=== PATIENT | female | born 1945 | race Caucasian/White ===

== ENCOUNTER 2017-05-07 17:03 | Emergency (ER) | payer BC ==
[~2017-05-07] VITALS: Ht 170.2 cm; Wt 72.6 kg
[2017-05-07] MEDS ORDERED: Mobic7.5 MG PO (17:56)
--- NOTE | 2017-05-07 17:58 | Emergency Room Report ---
History of Present Illness Time Seen by [id number] Presenting Problem in Triage Pt arrived:Wheelchair Presenting Problem:RIGHT HIP PAIN. PT STATES SHE HAD TWO PREVIOUS EPISODES OF SEEMINGLY BENIGN MUSCLE CRAMPS OVER THE LAST WEEK, WITH THE END RESULT BEING PT BEING ABLE TO AMBULATE WITHOUT ISSUE AFTERWARDS. TODAY, PATIENT STEPPED DOWN ON HER RT LEG AND IMMEDIATELY COLLAPSED FROM DISCOMFORT. NOTICEABLE BULGE AT PROXIMAL END OF FEMUR. NO BRUISING. 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 N Clinical Suspician of Infection? N Mental Status: 1 - Regular (Normal Baseline) Sepsis Risk:Low Sepsis Risk Have you (or family members/close friends) recently traveled outside the [place]? N If Yes, where/when: Have you had exposure to infectious disease within the past month? TB? Other? Specify: 71 years old white female who is here because of initial injury of the RIGHT thigh muscle during playing golf when she had the ground WITH THE RESULT OF IMMEDIATE PAIN, SHE HAS BEEN USING HEAT WITH NO IMPROVEMENT. SHE DENIES NUMBNESS , TINGLING , WEAKNESS, IT HURTS TOSTAND UP. Source patient, RN notes reviewed, family Exam Limitations no limitations ALLERGIES Uncoded Allergies: PCN (Mild, 05/07/17) History Medical History General Angina: No NM: No Hypertension? Yes Hyperlipidemia? Yes COPD? No Asthma? No CVA? No Seizures? No Diabetes? No GB Disease: No MRSA? No TB? No Cancer? No Immunization Hx Ped.Immunizations UTD Yes DT/Tetanus NOT SURE Surgical Hx Previous Surgery?Y RT ROTATOR CUFF HYSTERECTOMY Social History Smoking Hx Smoker: Never Smoker Tobacco: No Type N/A Are you/the child exposed to second-hand smoke: No Alcohol Alcohol: Yes Review of Systems All Other Systems Reviewed and Negative Constitutional no symptoms reported Eyes no symptoms reported ENT no symptoms reported. Respiratory no symptoms reported Cardiovascular no symptoms reported Gastrointestinal no symptoms reported Genitourinary no symptoms reported. Musculoskeletal see HPI, muscle pain Skin no symptoms reported Psychiatric/Neurological no symptoms reported Physical Exam Vital Signs Vital Signs Date Time Temp Pulse Resp B/P Pulse O2 O2 Flow FiO2 Ox Delivery Rate 05/07 1725 97.3 94 18 142/75 98 - WBC >12,000 or <4,000 or 10% bands? 2 or more SIRS Criteria Met? B/P:142/75 MAP:97 Creatinine >2.0? UA output<0.5ml/kg/hr for 2 hrs? Platelet count >100,000? Lactate >2.0mmol/1? INR >1.2 or PTT > than 60 sec? Evidence of Organ Dysfunction? Provider documented clinical suspician of infection? N Sepsis Criteria Count: 1 Sepsis Risk: Low Sepsis Risk General Appearance normal appearance, WD/WN Eye Exam - bilateral eye normal exam, bilateral eye PERRL, bilateral eye EOMI Ear, Nose, Throat hearing grossly normal, normal ENT inspection Neck normal inspection, non-tender, supple, full range of motion Respiratory Status Yes: trachea midline, chest symmetrical, non tender chest. No: respiratory distress. Lung Sounds bilateral: normal breath sounds, lungs clear. 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 No Results/Orders Orders Procedure Date/time Status HIP RT 2-3V W/PELVIS IF PERFOR 05/07 1724 Active XRAY/CT/US XRAY/CT/US XRAY hip XR interpretation by reviewed by me Xray Results no fracture seen Departure Departure Time of Disposition 1756 Disposition DC Home or Self Care(routine) Clinical Impression Primary Impression: Muscle strain Secondary Impressions: Muscle strain of right lower extremity Condition STABLE Referrals SYDNI PARSONS (PCP/Family) Additional Instructions REST ICE MOBIC SEE PCP PLANNED AND OBTAIN MRI IF NOT BETTER Discharge Counseling Counseled pt/family regarding diagnosis, test results, medications/RX, home care, follow up needs Prescriptions Current Visit Scripts Meloxicam (Mobic) 7.5 MG PO Q12HP #30 TAB ED Critical Care Critical Care No If Critical Care minutes are documented, the time involved in the performance of seperately reportable procedures was not counted toward critical care time documented. I directly delivered medical care to this critically ill and/or injured patient. Timely evaluation and treatment was necessary to address the significant organ system(s) dysfunction present in this patient. at [id number]
--- NOTE | 2017-05-07 17:58 | Emergency Room Report ---
History of Present Illness Time Seen by [id number] Presenting Problem in Triage Pt arrived:Wheelchair Presenting Problem:RIGHT HIP PAIN. PT STATES SHE HAD TWO PREVIOUS EPISODES OF SEEMINGLY BENIGN MUSCLE CRAMPS OVER THE LAST WEEK, WITH THE END RESULT BEING PT BEING ABLE TO AMBULATE WITHOUT ISSUE AFTERWARDS. TODAY, PATIENT STEPPED DOWN ON HER RT LEG AND IMMEDIATELY COLLAPSED FROM DISCOMFORT. NOTICEABLE BULGE AT PROXIMAL END OF FEMUR. NO BRUISING. 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 N Clinical Suspician of Infection? N Mental Status: 1 - Regular (Normal Baseline) Sepsis Risk:Low Sepsis Risk Have you (or family members/close friends) recently traveled outside the [place]? N If Yes, where/when: Have you had exposure to infectious disease within the past month? TB? Other? Specify: 71 years old white female who is here because of initial injury of the RIGHT thigh muscle during playing golf when she had the ground WITH THE RESULT OF IMMEDIATE PAIN, SHE HAS BEEN USING HEAT WITH NO IMPROVEMENT. SHE DENIES NUMBNESS , TINGLING , WEAKNESS, IT HURTS TOSTAND UP. Source patient, RN notes reviewed, family Exam Limitations no limitations ALLERGIES Uncoded Allergies: PCN (Mild, 05/07/17) History Medical History General Angina: No MT: No Hypertension? Yes Hyperlipidemia? Yes COPD? No Asthma? No CVA? No Seizures? No Diabetes? No GB Disease: No MRSA? No TB? No Cancer? No Immunization Hx Ped.Immunizations UTD Yes DT/Tetanus NOT SURE Surgical Hx Previous Surgery?Y RT ROTATOR CUFF HYSTERECTOMY Social History Smoking Hx Smoker: Never Smoker Tobacco: No Type N/A Are you/the child exposed to second-hand smoke: No Alcohol Alcohol: Yes Review of Systems All Other Systems Reviewed and Negative Constitutional no symptoms reported Eyes no symptoms reported ENT no symptoms reported. Respiratory no symptoms reported Cardiovascular no symptoms reported Gastrointestinal no symptoms reported Genitourinary no symptoms reported. Musculoskeletal see HPI, muscle pain Skin no symptoms reported Psychiatric/Neurological no symptoms reported Physical Exam Vital Signs Vital Signs Date Time Temp Pulse Resp B/P Pulse O2 O2 Flow FiO2 Ox Delivery Rate 05/07 1725 97.3 94 18 142/75 98 - WBC >12,000 or <4,000 or 10% bands? 2 or more SIRS Criteria Met? B/P:142/75 MAP:97 Creatinine >2.0? UA output<0.5ml/kg/hr for 2 hrs? Platelet count >100,000? Lactate >2.0mmol/1? INR >1.2 or PTT > than 60 sec? Evidence of Organ Dysfunction? Provider documented clinical suspician of infection? N Sepsis Criteria Count: 1 Sepsis Risk: Low Sepsis Risk General Appearance normal appearance, WD/WN Eye Exam - bilateral eye normal exam, bilateral eye PERRL, bilateral eye EOMI Ear, Nose, Throat hearing grossly normal, normal ENT inspection Neck normal inspection, non-tender, supple, full range of motion Respiratory Status Yes: trachea midline, chest symmetrical, non tender chest. No: respiratory distress. Lung Sounds bilateral: normal breath sounds, lungs clear. 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 No Results/Orders Orders Procedure Date/time Status HIP RT 2-3V W/PELVIS IF PERFOR 05/07 1724 Active XRAY/CT/US XRAY/CT/US XRAY hip XR interpretation by reviewed by me Xray Results no fracture seen Departure Departure Time of Disposition 1756 Disposition DC Home or Self Care(routine) Clinical Impression Primary Impression: Muscle strain Secondary Impressions: Muscle strain of right lower extremity Condition STABLE Referrals SYDNI PARSONS (PCP/Family) Additional Instructions REST ICE MOBIC SEE PCP PLANNED AND OBTAIN MRI IF NOT BETTER Discharge Counseling Counseled pt/family regarding diagnosis, test results, medications/RX, home care, follow up needs Prescriptions Current Visit Scripts Meloxicam (Mobic) 7.5 MG PO Q12HP #30 TAB ED Critical Care Critical Care No If Critical Care minutes are documented, the time involved in the performance of seperately reportable procedures was not counted toward critical care time documented. I directly delivered medical care to this critically ill and/or injured patient. Timely evaluation and treatment was necessary to address the significant organ system(s) dysfunction present in this patient. at 1925
[2017-05-07 18:18] VITALS: BP 135/72
--- NOTE | 2017-05-08 08:14 | RADIOLOGY REPORT PS360 ---
HIP RT 2-3V W/PELVIS IF PERFOR COMPARISON: None HISTORY: Right hip and right upper thigh pain TECHNIQUE: AP pelvis, cone-down AP and frog of the right hip FINDINGS: The iliac bones and pubic bones appear intact. The right femoral head and neck appear intact . There is minimal spurring of the acetabulum but similar spurring seen on the left side. There is a small periarticular ossification just lateral to the right acetabulum. There is some mild osseous whiskering of the right iliac crest. The SI joints and symphysis pubis per normal. IMPRESSION: Pelvis and right hip negative for fracture, very minor degenerative changes of both hips noted
--- OUTSIDE RECORDS SUMMARY | 2017-05-14 21:37 | External Medical Summary Rpt ---
Author Author BOBBY Salazar, [employer] Organization [employer] Address Unknown Phone Unavailable
--- OUTSIDE RECORDS SUMMARY | 2017-05-14 21:37 | External Medical Summary Rpt | CCD ---
Author Author BOBBY Address Unknown Phone [email or web address] Purpose Continuity of Care Document - through 2016
--- OUTSIDE RECORDS SUMMARY | 2017-05-14 21:37 | External Medical Summary Rpt | CCD ---
Author Author [employer] Organization [employer] Address Unknown Phone Unavailable Purpose Continuity of Care Document - through 2016
--- OUTSIDE RECORDS SUMMARY | 2017-05-14 21:37 | External Medical Summary Rpt | CCD ---
Author Author [employer] Address Unknown Phone Purpose Continuity of Care Document - through 2016
--- OUTSIDE RECORDS SUMMARY | 2017-05-14 21:37 | External Medical Summary Rpt | CCD ---
Author Author , [employer]OBBY ROSALES Address Unknown Phone [email or web address] Support Name Relationship Address Phone LASHELL, Next Of Kin Unknown Unavailable ANNA Immunization Name Date Rout CVX Reac Dose Comm Prov Is Faci e tion ent ider Refu lity Give sed n Tdap 05-1 Intr 115 0.5 Hist FERR No FERR , 1-20 amus mL oric ASHLYN ASHLYN Adso 17 cula al LLIS LLIS rbed r Info rmat ion - Sour ce Unsp ecif ied
--- OUTSIDE RECORDS SUMMARY | 2017-05-14 21:37 | External Medical Summary Rpt | CCD ---
Author Author , BOBBY ROSALES Address Unknown Phone [email or web address] Support Name Relationship Address Phone LASHELL, Next [...]
== END 2017-05-07 18:19 | disposition home or self-care (01) ==
LOC: ER 17:03
DX: S76.911A Strain of unspecified muscles, fascia and tendons at thigh level, right thigh, initial encounter (principal); I10 Essential (primary) hypertension; Z88.0 Allergy status to penicillin